=== PATIENT | female | born 1960 | race Caucasian/White ===

== ENCOUNTER → 2016-09-13 | Outpatient (CLI) | payer BC ==
[~2016-09-13] MED LIST: ALTACE5 M1 PO; CEPHALEXIN500 M1 PO; CIPRO PO; COREG PO; COUMADIN5 MG PO; FLOMAX0.4 M1 DOB; GLYBURIDE2.5 M1 PO; JANUVIA PO; LANTUS100 U/M1 SQ; LORTAB 7.5-5001 TAB PO; METFORMIN HCL500 M1 PO; MICRONASE1.25 MG PO; PHENERGAN25 MG PO; TOPROL XL PO; TYLOX 5/500 CAP1 CAP PO; UROCIT K PO; ZOFRAN PO
[2016-09-13 08:35] LABS: INR 1.7; PROTHROMBIN TIME (PATIENT) 19.1 SECONDS (9.5-12.4)
== END | disposition home or self-care (01) ==
LOC: SLAB 07:56
PROVIDERS: Internal Medicine Cardiovascular Disease
DX: Z48.812 Encounter for surgical aftercare following surgery on the circulatory system (principal); Z95.2 Presence of prosthetic heart valve
CPT/HCPCS: 36415; 85610

== ENCOUNTER → 2016-09-17 | Outpatient (CLI) | payer BC ==
[2016-09-17 12:54] LABS: INR 2.1; PROTHROMBIN TIME (PATIENT) 24.3 SECONDS (9.5-12.4)
== END | disposition home or self-care (01) ==
LOC: SLAB 09:11
PROVIDERS: Internal Medicine Cardiovascular Disease
DX: Z51.81 Encounter for therapeutic drug level monitoring (principal); Z95.2 Presence of prosthetic heart valve; Z79.01 Long term (current) use of anticoagulants
CPT/HCPCS: 36415; 85610

== ENCOUNTER → 2016-09-24 | Outpatient (CLI) | payer BC ==
[2016-09-24 09:06] LABS: INR 2.9; PROTHROMBIN TIME (PATIENT) 32.7 SECONDS (9.5-12.4)
== END | disposition home or self-care (01) ==
LOC: SLAB 08:38
PROVIDERS: Internal Medicine Cardiovascular Disease
DX: I35.1 Nonrheumatic aortic (valve) insufficiency (principal); F20.2 Catatonic schizophrenia
CPT/HCPCS: 36415; 85610

== ENCOUNTER → 2016-10-08 | Outpatient (CLI) | payer BC ==
[2016-10-08 08:30] LABS: INR 2.7; PROTHROMBIN TIME (PATIENT) 31.2 SECONDS (9.5-12.4)
== END | disposition home or self-care (01) ==
LOC: SLAB 07:53
PROVIDERS: Internal Medicine Cardiovascular Disease
DX: Z51.81 Encounter for therapeutic drug level monitoring (principal); Z95.2 Presence of prosthetic heart valve; Z79.01 Long term (current) use of anticoagulants
CPT/HCPCS: 36415; 85610

== ENCOUNTER → 2016-10-29 | Outpatient (CLI) | payer BC ==
[2016-10-29 08:09] LABS: INR 1.9; PROTHROMBIN TIME (PATIENT) 21.4 SECONDS (9.5-12.4)
== END | disposition home or self-care (01) ==
LOC: SLAB 07:24
PROVIDERS: Internal Medicine Cardiovascular Disease
DX: Z51.81 Encounter for therapeutic drug level monitoring (principal); Z95.2 Presence of prosthetic heart valve; Z79.899 Other long term (current) drug therapy
CPT/HCPCS: 36415; 85610

== ENCOUNTER → 2016-10-29 | Outpatient (CLI) | payer BC ==
[2016-10-29 08:20] LABS: BUN/CREATININE RATIO 18.57; CALCIUM SERUM 8.6 mg/dL (8.4-10.2); CREATININE SERUM 0.7 mg/dL (0.6-1.4); GLOM FILT RATE Estimated 97.5 mL/min (>60)
== END | disposition home or self-care (01) ==
LOC: SLAB 07:25
PROVIDERS: Family Medicine
DX: E11.9 Type 2 diabetes mellitus without complications (principal)
CPT/HCPCS: 80048; 80061; 83036

== ENCOUNTER → 2016-11-27 | Outpatient (CLI) | payer BC ==
[2016-11-27 08:09] LABS: INR 2.9; PROTHROMBIN TIME (PATIENT) 33.4 SECONDS (9.5-12.4)
== END | disposition home or self-care (01) ==
LOC: SLAB 07:44
PROVIDERS: Internal Medicine Cardiovascular Disease
DX: Z51.81 Encounter for therapeutic drug level monitoring (principal); Z79.01 Long term (current) use of anticoagulants; Z95.2 Presence of prosthetic heart valve
CPT/HCPCS: 36415; 85610

== ENCOUNTER → 2016-12-25 | Outpatient (CLI) | payer BC ==
[2016-12-25 08:01] LABS: BUN/CREATININE RATIO 14.28; CALCIUM SERUM 8.9 mg/dL (8.4-10.2); CREATININE SERUM 0.7 mg/dL (0.6-1.4); GLOM FILT RATE Estimated 97.5 mL/min (>60); POTASSIUM 4.2 mmol/L (3.5-5.1)
== END | disposition home or self-care (01) ==
LOC: SLAB 07:30
PROVIDERS: Urology
DX: N20.0 Calculus of kidney (principal)
CPT/HCPCS: 80048

== ENCOUNTER → 2016-12-25 | Outpatient (CLI) | payer BC ==
[2016-12-25 07:54] LABS: INR 3.3; PROTHROMBIN TIME (PATIENT) 37.5 SECONDS (9.5-12.4)
== END | disposition home or self-care (01) ==
LOC: SLAB 07:30
PROVIDERS: Internal Medicine Cardiovascular Disease
DX: Z51.81 Encounter for therapeutic drug level monitoring (principal); Z95.2 Presence of prosthetic heart valve; Z79.01 Long term (current) use of anticoagulants
CPT/HCPCS: 36415; 85610

== ENCOUNTER → 2017-01-20 | Outpatient (CLI) | payer BC ==
[2017-01-20 08:22] LABS: INR 2.9; PROTHROMBIN TIME (PATIENT) 33.3 SECONDS (9.5-12.4)
== END | disposition home or self-care (01) ==
LOC: SLAB 07:38
PROVIDERS: Internal Medicine Cardiovascular Disease
DX: Z51.81 Encounter for therapeutic drug level monitoring (principal); Z95.2 Presence of prosthetic heart valve; Z79.01 Long term (current) use of anticoagulants
CPT/HCPCS: 36415; 85610

== ENCOUNTER → 2017-02-17 | Outpatient (CLI) | payer BC ==
[2017-02-17 08:58] LABS: INR 2.2; PROTHROMBIN TIME (PATIENT) 24.8 SECONDS (9.5-12.4)
== END | disposition home or self-care (01) ==
LOC: SLAB 07:35
PROVIDERS: Internal Medicine Cardiovascular Disease
DX: Z51.81 Encounter for therapeutic drug level monitoring (principal); Z95.2 Presence of prosthetic heart valve; Z79.01 Long term (current) use of anticoagulants
CPT/HCPCS: 36415; 85610

== ENCOUNTER → 2017-03-06 | Outpatient (CLI) | payer BC ==
[2017-03-06 08:30] LABS: INR 2.7; PROTHROMBIN TIME (PATIENT) 30.7 SECONDS (9.5-12.4)
== END | disposition home or self-care (01) ==
LOC: SLAB 08:01
PROVIDERS: Internal Medicine Cardiovascular Disease
DX: Z48.812 Encounter for surgical aftercare following surgery on the circulatory system (principal); Z95.2 Presence of prosthetic heart valve
CPT/HCPCS: 36415; 85610

== ENCOUNTER → 2017-03-06 | Outpatient (CLI) | payer BC | END | disposition home or self-care (01) | LOC: SLAB 07:58 | DX: E11.9 Type 2 diabetes mellitus without complications (principal) | CPT/HCPCS: 36415; 83036; 85610 ==

== ENCOUNTER → 2017-03-24 | Outpatient (CLI) | payer BC ==
[2017-03-24 09:53] LABS: INR 3.1; PROTHROMBIN TIME (PATIENT) 35.3 SECONDS (9.5-12.4)
== END | disposition home or self-care (01) ==
LOC: SLAB 08:16
PROVIDERS: Internal Medicine Cardiovascular Disease
DX: Z51.81 Encounter for therapeutic drug level monitoring (principal); Z95.2 Presence of prosthetic heart valve; Z79.01 Long term (current) use of anticoagulants
CPT/HCPCS: 36415; 85610